=== PATIENT | female | born 1955 | race Caucasian/White ===

== ENCOUNTER → 2021-12-22 13:31 | Outpatient (POV) | payer MEDICARE, SELFPAY ==
[2021-12-22 13:45] VITALS: BP 131/88; PULSE 93; RESP 18; TEMP 36.7; O2SAT 98; BMI 24.0
--- NOTE | 2021-12-22 14:46 | [facility].PMCON ---
Assessment and Plan (1) Degenerative joint disease of cervical and lumbar spine Status: Acute Category: Medical Code(s): M47.812 - Spondylosis without myelopathy or radiculopathy, cervical region; M47.816 - Spondylosis without myelopathy or radiculopathy, lumbar region (2) Cervical radiculopathy Status: Acute Category: Medical Code(s): M54.12 - Radiculopathy, cervical region (3) Lumbar radiculopathy Status: Acute Category: Medical Code(s): M54.16 - Radiculopathy, lumbar region (4) History of fusion of cervical spine Status: Acute Category: Surgical Code(s): Z98.1 - Arthrodesis status - Assessment and plan all Dx Assessment and Plan for all problems:: Patient is currently being managed with oxycodone 10 mg 4 times a day and gabapentin 300 mg 3 times a day that is prescribed by Dr. Talbert. Patient has tried conservative therapies in the past including oral medications, injective therapy, physical therapy, and at home exercises for gait in 6 weeks. Patient had minimal relief with these conservative therapies. The patient is interested in intrathecal pain pump therapy. I discussed this procedure in detail with the patient including risk and benefits. Patient is interested in this therapy. I will refer the patient for a psychiatric evaluation for intrathecal pain pump trial. I will also order an updated lumbar MRI to further evaluate pathology. Patient denies any recent falls or traumas. We will not continue the patient's oxycodone 10 mg 4 times a day and gabapentin 300 mg 3 times a day. Patient has been instructed to contact the clinic with any concerns before the next appointment. Dr. Clrake has reviewed this note and agrees with this plan of care. This note was dictated using voice recognition software and make contain errors or omissions. HPI - Data of Consult Patient: new to practice Consult date: 12/22/21 Requesting Physician: DOTTIE Santamaria - Consult Narrative Reason for consult: Chronic neck and low back pain History of present illness: Ms. Rutledge is a 66 year old female who presents today as a new patient. Patient is referred by Dr. Talbert. Thank you for the referral. Patient presents today with chronic neck and low back pain. She had an anterior spinal fusion in the past. She states that her neck pain radiates to bilateral upper extremities that is causing numbness and paresthesia. Her low back pain radiates to bilateral lower extremities causing numbness and paresthesia. Denies any recent falls or traumas. Denies any loss of bowel and bladder functions. She is also fractured her left leg and right wrist before that needed surgical interventions. Patient was being managed at another pain clinic in [facility] in Dr. Murillo's office. She had multiple epidural steroid injections in the past that provided minimal relief. She was a nonsurgical candidate in the past. For pain, she was being managed with Percocet 10 mg 4 times a day and gabapentin 300 mg 3 times [address] Dr[address] Murillo's office. Since that clinic has closed, Dr. Talbert has taken over her oral pain medications. She states that these oral medications are helping her pain. She has never had any inappropriate drug screens. She is here today wanting more information intrathecal pain pump therapy. She is not interested in any spinal cord stimulators. [facility] #[id number] with an active morphine equivalent of 60. CC: DOTTIE Santamaria [facility] History I have reviewed the patient's past medical history: Yes Medical History: Reports:: Hypertension Denies:: Cancer, Diabetes Mellitus Type 1, Diabetes Mellitus Type 2, MRSA *Have you ever received a pneumonia vaccine?: Yes *Have you received a flu vaccine this season?: Yes Amputation: No - *Social History Smoking Status: Current every day smoker Tobacco Type: cigarettes # Packs/Day (cigarettes): 1 Alcohol Intake: never Alcohol Intake Frequency:: other *Occupational Status:: retired [employer]
== END ==
PROVIDERS: Visit Provider Student in an Organized Health Care Education/Training Program
DX: M47.892 Other spondylosis, cervical region (principal); M54.12 Radiculopathy, cervical region; M54.16 Radiculopathy, lumbar region; Z98.1 Arthrodesis status
CPT/HCPCS: 99202; G0463